=== PATIENT | female | born 1980 | race Hispanic/Latino ===

== ENCOUNTER 2017-01-11 04:19 | Emergency (ER) | payer OTHER ==
[~2017-01-11] VITALS: Ht 157.5 cm; Wt 80.8 kg
[~2017-01-11 04:19] MED LIST: DILAUDID2 MG PO; Motrin PO; VICODIN 5-3001 EACH PO; ZOFRAN4 MG PO
[2017-01-11 05:26] LABS: INFLUENZA A VIRAL ANTIGEN NEGATIVE; INFLUENZA B VIRAL ANTIGEN NEGATIVE
[2017-01-11] MEDS ORDERED: ZITHROMAX250 MG PO (07:37)
[2017-01-11 07:57] VITALS: BP 106/69
== END 2017-01-11 08:03 | disposition home or self-care (01) ==
LOC: EME 04:19
PROVIDERS: Emergency Medicine
DX: O26.893 Other specified pregnancy related conditions, third trimester (principal); J06.9 Acute upper respiratory infection, unspecified; Z3A.30 30 weeks gestation of pregnancy
CPT/HCPCS: 71010; 87502; 87651 90; 94640

== ENCOUNTER 2017-01-23 13:56 | Outpatient (CLI) | payer OTHER ==
[2017-01-23] VITALS (9 sets, daily range): BP systolic 100–118; BP diastolic 58–75
[~2017-01-23 13:56] MED LIST changes: +ZITHROMAX250 MG PO
[2017-01-23 15:17] LABS: BILIRUBIN NEGATIVE; BLOOD NEGATIVE; COLOR YELLOW ((YELLOW)); GLUCOSE (STRIP) NEGATIVE; KETONES NEGATIVE; LEUKOCYTES NEGATIVE; NITRITE NEGATIVE; PROTEIN (STRIP) NEGATIVE; SPECIFIC GRAVITY 1.009 (1.000-1.030); UROBILINOGEN 0.2 MG/DL (0.2-1.0)
[2017-01-23 15:30] LABS: ADD MIUA? NO; UCUL ADDED? NO
[2017-01-23 15:54] LABS: EOSINOPHIL (%) 0.6 % (0-5); EOSINOPHIL COUNT 0.1 K/uL (0-0.3); HEMATOCRIT 26.1 % (36.0-46.0); IMMATURE GRANULOCYTE (%) 0.8 % (0.0-0.7); IMMATURE GRANULOCYTE COUNT 0.1 K/uL; LYMPHOCYTE COUNT 1.4 K/uL (1.0-2.8); MCH 27.9 PG (29.0-34.0); MCHC 32.6 G/DL (30.0-36.0); MCV 85.6 FL (83-99); MEAN PLAT.VOLUME 10.2 uM^3 (9.5-12.4); MONOCYTE (%) 6.9 % (3-12); MONOCYTE COUNT 0.7 K/uL (0-0.8); NEUTROPHIL COUNT 7.7 K/uL (1.8-6.4); PLATELET COUNT 277 K/uL (156-360); RBC DIS.WIDTH-CV 14.5 % (11.8-14.6); RBC DIS.WIDTH-SD 45.2 % (39-53); RED BLOOD COUNT 3.05 M/uL (3.80-5.20); WHITE BLOOD COUNT 9.9 K/uL (4.1-10.2)
[2017-01-23 18:45] LABS: CANDIDA DNA PROBE NEGATIVE; GARDNERELLA DNA PROBE NEGATIVE; INTERNAL CONTROL VALID? YES
[2017-01-23 22:08] LABS: ANION GAP 9 MEQ/L (2-14); CHLORIDE 105 MEQ/L (99-109); POTASSIUM 3.3 MEQ/L (3.7-5.4); SAMPLE HEMOLYSIS CHECK 0; SAMPLE ICTERIC CHECK 0; SAMPLE LIPEMIA CHECK 0; SODIUM 137 MEQ/L (136-147)
[2017-01-23 22:14] LABS: GFR ESTIMATE (CALCULATED) > 59 mL/min/; GLUCOSE 84 mg/dL (70-99); UREA NITROGEN (BUN) 4 mg/dL (9-23)
[2017-01-24] MEDS ORDERED: CYCLOBENZAPRINE5 MG PO (01:43)
== END 2017-01-24 02:15 | disposition home or self-care (01) ==
LOC: LDRP-OP → 2WEST 13:57
PROVIDERS: Advanced Practice Midwife; Obstetrics & Gynecology
DX: O26.893 Other specified pregnancy related conditions, third trimester (principal); M54.5 Low back pain; Z3A.32 32 weeks gestation of pregnancy; O09.523 Supervision of elderly multigravida, third trimester
CPT/HCPCS: 59025; 71275; 76770; 80048; 80048 91; 81003; 82731; 85025; 87086; 87480; 87510; 87660; G0378; J2270; J2405; J7120

== ENCOUNTER 2017-03-14 07:33 | Inpatient (IN) | payer OTHER ==
[~2017-03-14] VITALS: Ht 162.6 cm; Wt 83.4 kg
[2017-03-14] VITALS (14 sets, daily range): BP systolic 105–133; BP diastolic 54–86
[~2017-03-14 07:33] MED LIST changes: +CYCLOBENZAPRINE5 MG PO
[2017-03-14 08:56] LABS: EOSINOPHIL (%) 1.3 % (0-5); EOSINOPHIL COUNT 0.1 K/uL (0-0.3); IMMATURE GRANULOCYTE (%) 0.9 % (0.0-0.7); IMMATURE GRANULOCYTE COUNT 0.1 K/uL; INSTRUMENT ABS NEUTROPHIL CT 6.5 K/uL; LYMPHOCYTE COUNT 2.1 K/uL (1.0-2.8); MCH 27.3 PG (29.0-34.0); MCHC 31.9 G/DL (30.0-36.0); MCV 85.8 FL (83-99); MEAN PLAT.VOLUME 11.1 uM^3 (9.5-12.4); MONOCYTE (%) 7.9 % (3-12); MONOCYTE COUNT 0.8 K/uL (0-0.8); NEUTROPHIL (%) 67.7 % (45-76); NEUTROPHIL COUNT 6.5 K/uL (1.8-6.4); PLATELET COUNT 279 K/uL (156-360); RBC DIS.WIDTH-CV 17.7 % (11.8-14.6); RBC DIS.WIDTH-SD 55.7 % (39-53); RED BLOOD COUNT 3.73 M/uL (3.80-5.20); WHITE BLOOD COUNT 9.6 K/uL (4.1-10.2)
[2017-03-15 08:08] VITALS: BP 102/65
[2017-03-15 08:25] LABS: EOSINOPHIL (%) 1.4 % (0-5); EOSINOPHIL COUNT 0.2 K/uL (0-0.3); HEMATOCRIT 29.6 % (36.0-46.0); IMMATURE GRANULOCYTE COUNT 0.1 K/uL; INSTRUMENT ABS NEUTROPHIL CT 7.6 K/uL; LYMPHOCYTE COUNT 2.3 K/uL (1.0-2.8); MCH 27.4 PG (29.0-34.0); MCHC 31.4 G/DL (30.0-36.0); MCV 87.1 FL (83-99); MEAN PLAT.VOLUME 11.2 uM^3 (9.5-12.4); MONOCYTE (%) 7.9 % (3-12); MONOCYTE COUNT 0.9 K/uL (0-0.8); NEUTROPHIL (%) 68.7 % (45-76); NEUTROPHIL COUNT 7.6 K/uL (1.8-6.4); PLATELET COUNT 228 K/uL (156-360); RBC DIS.WIDTH-CV 17.9 % (11.8-14.6); RBC DIS.WIDTH-SD 57.2 % (39-53); WHITE BLOOD COUNT 11.1 K/uL (4.1-10.2)
[2017-03-15] MEDS ORDERED: IBUPROFEN800 MG PO (10:19)
[2017-03-15] MEDS ORDERED: DOCUSATE SODIU100 MG PO (10:19)
[2017-03-15] MEDS ORDERED: HEMOCYTE324 MG PO (10:38)
[2017-03-15 14:49] VITALS: BP 112/65
== END 2017-03-15 18:25 | disposition home or self-care (01) | DRG 775 ==
LOC: LDRP-OP 07:33 → 2WEST 07:34 → LDRP-OP 04-20 02:50
PROVIDERS: Advanced Practice Midwife
DX: O70.1 Second degree perineal laceration during delivery (principal); D62 Acute posthemorrhagic anemia; E66.3 Overweight; Z68.31 Body mass index [BMI] 31.0-31.9, adult; O99.013 Anemia complicating pregnancy, third trimester; M54.9 Dorsalgia, unspecified; K80.20 Calculus of gallbladder without cholecystitis without obstruction; O99.62 Diseases of the digestive system complicating childbirth; O26.899 Other specified pregnancy related conditions, unspecified trimester; O99.214 Obesity complicating childbirth; O99.02 Anemia complicating childbirth; D50.9 Iron deficiency anemia, unspecified; Z37.0 Single live birth; Z3A.39 39 weeks gestation of pregnancy; Z86.718 Personal history of other venous thrombosis and embolism
CPT/HCPCS: 85025; J0595; J7120

== ENCOUNTER 2017-09-01 17:42 | Emergency (ER) | payer SELFPAY ==
[~2017-09-01] VITALS: Ht 162.6 cm; Wt 75.7 kg
[~2017-09-01 17:42] MED LIST changes: +DOCUSATE SODIU100 MG PO; +HEMOCYTE324 MG PO; +IBUPROFEN800 MG PO
[2017-09-01 18:22] LABS: HEMATOCRIT 36.5 % (36.0-46.0); MCHC 32.6 G/DL (30.0-36.0); MCV 88.8 FL (83-99); MEAN PLAT.VOLUME 9.9 uM^3 (9.5-12.4); PLATELET COUNT 316 K/uL (156-360); RBC DIS.WIDTH-CV 15.1 % (11.8-14.6); RBC DIS.WIDTH-SD 48.7 % (39-53); RED BLOOD COUNT 4.11 M/uL (3.80-5.20); WHITE BLOOD COUNT 9.1 K/uL (4.1-10.2)
[2017-09-01 18:38] LABS: CHLORIDE 106 mEq/L (99-109)
[2017-09-01 18:39] LABS: SODIUM 138 mEq/L (136-147)
[2017-09-01 18:40] LABS: GLUCOSE 85 mg/dL (70-99)
[2017-09-01 18:42] LABS: ANION GAP 8 MEQ/L (2-14)
[2017-09-01 18:44] LABS: GFR ESTIMATE (CALCULATED) > 59 mL/min/
[2017-09-01 18:45] LABS: UREA NITROGEN (BUN) 9 mg/dL (9-23)
[2017-09-01 19:47] LABS: QUANTITATIVE HCG < 4.0 MIU/ML
[2017-09-01 21:23] LABS: ADD MIUA? YES; BILIRUBIN NEGATIVE; BLOOD MODERATE; COLOR YELLOW ((YELLOW)); GLUCOSE (STRIP) NEGATIVE; KETONES NEGATIVE; LEUKOCYTES LARGE; NITRITE NEGATIVE; PROTEIN (STRIP) NEGATIVE; SPECIFIC GRAVITY 1.004 (1.000-1.030); UROBILINOGEN 0.2 MG/DL (0.2-1.0)
[2017-09-01 21:52] LABS: BACTERIA RARE /HPF; EPITHELIAL CELLS 2+ /HPF; MUCUS NONE SEEN /LPF; RED BLOOD CELLS 0-5 /HPF (0-5)
[2017-09-01] MEDS ORDERED: CIPRO500 MG PO (22:19)
[2017-09-01 22:40] VITALS: BP 113/79
== END 2017-09-01 22:40 | disposition home or self-care (01) ==
LOC: EME 17:42
DX: N39.0 Urinary tract infection, site not specified (principal); R10.30 Lower abdominal pain, unspecified; K21.9 Gastro-esophageal reflux disease without esophagitis
CPT/HCPCS: 74176; 76856; 80048; 81003; 84702; 85027; 87077; 87086; 87186; 87491; 87591; 99281; 99284

== ENCOUNTER 2018-01-15 22:16 | Emergency (ER) | payer OTHER ==
[~2018-01-15] VITALS: Ht 157.5 cm; Wt 78.5 kg
[~2018-01-15 22:16] MED LIST changes: +CIPRO500 MG PO
[2018-01-15 23:38] LABS: APPEARANCE SL.HAZY ((CLEAR)); BILIRUBIN NEGATIVE; BLOOD SMALL; COLOR YELLOW ((YELLOW)); GLUCOSE (STRIP) NEGATIVE; KETONES NEGATIVE; LEUKOCYTES SMALL; NITRITE NEGATIVE; PROTEIN (STRIP) NEGATIVE; SPECIFIC GRAVITY 1.011 (1.000-1.030); UROBILINOGEN 0.2 MG/DL (0.2-1.0)
[2018-01-15 23:49] LABS: BACTERIA RARE /HPF; EPITHELIAL CELLS RARE /HPF; MUCUS NONE SEEN /LPF; RED BLOOD CELLS 0-5 /HPF (0-5); UCUL ADDED? YES
[2018-01-16 02:07] LABS: HEMATOCRIT 37.3 % (36.0-46.0); HEMOGLOBIN 12.2 G/DL (11.9-15.5); MCH 28.3 PG (29.0-34.0); MCHC 32.7 G/DL (30.0-36.0); MCV 86.5 FL (83-99); PLATELET COUNT 338 K/uL (156-360); RBC DIS.WIDTH-CV 14.9 % (11.8-14.6); RBC DIS.WIDTH-SD 47.3 % (39-53); RED BLOOD COUNT 4.31 M/uL (3.80-5.20); WHITE BLOOD COUNT 10.1 K/uL (4.1-10.2)
[2018-01-16 02:24] LABS: CHLORIDE 108 mEq/L (99-109); SODIUM 138 mEq/L (136-147)
[2018-01-16 02:25] LABS: GLUCOSE 98 mg/dL (70-99)
[2018-01-16 02:29] LABS: CREATININE 0.7 mg/dL (0.6-1.3); GFR ESTIMATE (CALCULATED) > 59 mL/min/
[2018-01-16 02:30] LABS: UREA NITROGEN (BUN) 10 mg/dL (9-23)
[2018-01-16] MEDS ORDERED: KEFLEX500 MG PO (02:33)
[2018-01-16 02:39] LABS: QUANTITATIVE HCG < 4.0 MIU/ML
[2018-01-16 03:01] VITALS: BP 130/80
== END 2018-01-16 03:02 | disposition home or self-care (01) ==
LOC: EME 22:16
PROVIDERS: Nurse Practitioner Family
DX: R10.30 Lower abdominal pain, unspecified (principal); R30.0 Dysuria; K21.9 Gastro-esophageal reflux disease without esophagitis; Z90.49 Acquired absence of other specified parts of digestive tract
CPT/HCPCS: 80048; 81003; 84702; 85027; 87086; 99281; 99284